=== PATIENT | female | born 1960 ===

== ENCOUNTER → 2024-08-07 09:14 | Outpatient (REF) | payer OTHER, SELFPAY | LOC: WDC 09:14 | PROVIDERS: ATTENDING PHYSICIAN Family Medicine | DX: Z12.31 Encounter for screening mammogram for malignant neoplasm of breast (principal) | CPT/HCPCS: 77063; 77067 ==

== ENCOUNTER → 2025-08-10 08:10 | Outpatient (REF) | payer OTHER, SELFPAY | LOC: WDC 08:10 | PROVIDERS: ATTENDING PHYSICIAN Family Medicine | DX: Z12.31 Encounter for screening mammogram for malignant neoplasm of breast (principal) | CPT/HCPCS: 77063; 77067 ==